=== PATIENT | male | born 1970 | race Caucasian/White ===

== ENCOUNTER 2022-02-01 10:07 | Outpatient (CLI) | payer OTHER | END 2022-02-01 10:11 | disposition home or self-care (01) | LOC: NUCLEAR 10:07 | PROVIDERS: ATTEND Dermatology | DX: I87.2 Venous insufficiency (chronic) (peripheral) (principal) ==

== ENCOUNTER 2025-01-23 10:36 | Outpatient (CLI) | payer OTHER | END 2025-01-23 10:41 | disposition home or self-care (01) | LOC: SONOGRAMA 10:36 | PROVIDERS: ATTEND Pathology Anatomic Pathology & Clinical Pathology | DX: D44.0 Neoplasm of uncertain behavior of thyroid gland (principal); E04.1 Nontoxic single thyroid nodule ==

== ENCOUNTER 2025-06-04 07:13 | Outpatient (CLI) | payer OTHER | END 2025-06-04 07:14 | disposition home or self-care (01) | LOC: NUCLEAR 07:13 | DX: E05.00 Thyrotoxicosis with diffuse goiter without thyrotoxic crisis or storm (principal); E04.1 Nontoxic single thyroid nodule ==

== ENCOUNTER 2025-06-05 07:08 | Outpatient (CLI) | payer OTHER | END 2025-06-05 07:10 | disposition home or self-care (01) | LOC: NUCLEAR 07:08 | DX: E05.00 Thyrotoxicosis with diffuse goiter without thyrotoxic crisis or storm (principal); E04.1 Nontoxic single thyroid nodule ==